=== PATIENT | female | born 1945 | race Hispanic/Latino ===

== ENCOUNTER 2017-07-21 18:42 | Inpatient (IN) | payer MEDICARE ==
[~2017-07-21] VITALS: Ht 149.9 cm; Wt 103.7 kg
[~2017-07-21 18:42] MED LIST: AMYL1CAP63 PO; ASPI-1181 PO; ATEN50TA PO; ATOR20TA65 PO; CLON0.2T PO; CLOP75TA14 PO; FERR325T22 PO; FURO20TA4 PO; INSU100I3 SQ; INSU3INS3 SQ; LEVO150T11 PO; LOSA1TAB42 PO; METF500T6 PO; NIFE60TA21 PO; PANT40TA25 PO; SUCR1TAB2 PO
[2017-07-21 19:27] LABS: BASOPHILS % (AUTO) 0.6 % (0.0-5.0); EOSINOPHILS % (AUTO) 3.6 % (0.0-8.0); HEMATOCRIT 31.4 % (36-48); LYMPHOCYTES % (AUTO) 27.2 % (21.0-51.0); MEAN CORPUSCULAR HEMOGLOBIN 24.1 pg (27.0-33.0); MEAN CORPUSCULAR HGB CONC 33.3 g/dL (32.0-36.0); MEAN CORPUSCULAR VOLUME 72.3 fL (79-99); MONOCYTES % (AUTO) 6.6 % (3.0-13.0); PLATELET COUNT (AUTO) 156 K/uL (130-400); RED BLOOD CELL COUNT(AUTO) 4.35 MIL/uL (4.00-5.50); RED CELL DISTRIBUTION WIDTH 16.9 % (11.0-15.5); WHITE BLOOD COUNT (AUTO) 7.8 K/uL (4.8-10.8)
[2017-07-21 19:43] LABS: CARBON DIOXIDE 25 mmol/L (21-32); CHLORIDE 101 mmol/L (101-111); CREATININE 1.4 mg/dL (0.5-1.5); GLOMERULAR FILTR. RATE CALC 39 mL/min (>60); GLUCOSE,RANDOM 319 mg/dL (70-105); POTASSIUM 3.7 mmol/L (3.5-5.1); SODIUM SERUM 138 mmol/L (136-145); UREA NITROGEN, BLOOD 31 mg/dL (7-18)
[2017-07-21 19:44] LABS: INR 0.95 (0.85-1.15); PARTIAL THROMBOPLASTIN TIME 25.4 SEC (26.3-35.5)
[2017-07-21 19:52] LABS: B-TYPE NATRIURETIC PEPTIDE 134 pg/mL (0-100)
[2017-07-21 19:58] LABS: ALANINE AMINOTRANSFERASE 50 U/L (12-78); ALBUMIN 3.1 g/dL (3.5-5.0); ASPARTATE AMINOTRANSFERASE 53 U/L (10-37); BILIRUBIN,TOTAL 0.3 mg/dL (0.2-1.0); CREATINE KINASE MB < 0.5 ng/mL (0.5-3.6); CREATINE KINASE, TOTAL 38 U/L (21-232); MYOGLOBIN 39 ng/mL (10-92); TOTAL PROTEIN, SERUM 7.9 g/dL (6.0-8.3)
[2017-07-21] MEDS ORDERED: ASPIRIN 325 MG TABLET ONE (22:09)
[2017-07-21] MEDS ORDERED: INSULIN HUMULIN R 100 UNIT/ML 3ML ONE (22:57)
[2017-07-21 23:05] VITALS: BP 151/59
[2017-07-22] MEDS ORDERED: AMYL1CAP63 PO (02:01)
[2017-07-22] MEDS ORDERED: FURO40TA5 PO (02:01)
[2017-07-22] MEDS ORDERED: METO50TA18 PO (02:01)
[2017-07-22 03:06] LABS: CREATINE KINASE MB < 0.5 ng/mL (0.5-3.6); CREATINE KINASE, TOTAL 31 U/L (21-232); MYOGLOBIN 32 ng/mL (10-92); TROPONIN I < 0.04 ng/mL (0.00-0.06)
[2017-07-22 04:07] VITALS: BP 158/61
[2017-07-22 07:00] VITALS: BP 163/65
[2017-07-22 08:31] LABS: CREATINE KINASE MB < 0.5 ng/mL (0.5-3.6); CREATINE KINASE, TOTAL 24 U/L (21-232); MYOGLOBIN 37 ng/mL (10-92); TROPONIN I < 0.04 ng/mL (0.00-0.06)
[2017-07-22 11:00] VITALS: BP 174/67
[2017-07-22] MEDS: MORPHINE SULFATE 2 MG/ML 1ML SYG IVP PRN (11:28)
[2017-07-22] MEDS ORDERED: INSULIN HUMULIN R 100 UNIT/ML 3ML ONE (11:55)
[2017-07-22] MEDS ORDERED: DEXTROSE 50%-WATER 50 ML DISP.SYRIN IV PRN (12:00)
[2017-07-22] MEDS ORDERED: GLUCAGON 1MG KIT 1 MG ML IM PRN (12:00)
[2017-07-22] MEDS: NIFEDIPINE ER 30 MG TAB PO SCH (15:17)
[2017-07-22] MEDS: CLONIDINE HCL 0.2 MG TABLET PO SCH ×2 (15:18→22:03)
[2017-07-22 16:00] VITALS: BP 169/65
[2017-07-22] MEDS: INSULIN HUMULIN R 100 UNIT/ML 3ML SQ SCH ×2 (16:30→21:00)
[2017-07-22] MEDS: SUCRALFATE 1 GM TABLET PO SCH (17:06)
[2017-07-22] MEDS: FERROUS SULFATE 325 MG TABLET.DR PO SCH (17:06)
[2017-07-22] MEDS: INSULIN LISPRO 100 UNIT/ML 3ML SQ SCH (17:14)
[2017-07-22 20:00] VITALS: BP 154/56
[2017-07-22] MEDS ORDERED: INSULIN GLARGINE 100 UNITS/ML 10 ML VIAL SQ ONE (20:26)
[2017-07-22] MEDS: INSULIN GLARGINE 100 UNITS/ML 10 ML VIAL SQ SCH (21:52)
[2017-07-22] MEDS: ASPIRIN 81 MG EC TAB PO SCH (22:02)
[2017-07-22] MEDS: ATORVASTATIN CALCIUM 20 MG TABLET PO SCH (22:03)
[2017-07-22] MEDS: ACETAMINOPHEN-CODEINE 300/30MG TAB PO PRN (23:27)
[2017-07-23] VITALS (7 sets, daily range): BP systolic 102–150; BP diastolic 51–72
[2017-07-23] MEDS: CLONIDINE HCL 0.2 MG TABLET PO SCH ×3 (05:57→21:21)
[2017-07-23] MEDS: LEVOTHYROXINE 150 MCG TABLET PO SCH (06:17)
[2017-07-23] MEDS: INSULIN HUMULIN R 100 UNIT/ML 3ML SQ SCH ×4 (06:18→21:00)
[2017-07-23] MEDS: INSULIN LISPRO 100 UNIT/ML 3ML SQ SCH ×2 (07:30→17:26)
[2017-07-23] MEDS: SUCRALFATE 1 GM TABLET PO SCH ×3 (07:30→17:28)
[2017-07-23] MEDS: [UNRECOGNIZED DRUG - OTHER] PO SCH ×5 (08:00→17:28)
[2017-07-23] MEDS: LOSARTAN 100 MG TABLET PO SCH (08:19)
[2017-07-23] MEDS ORDERED: REGADENOSON 0.4 MG/5 ML PF SYG IVP SCH (08:30)
[2017-07-23] MEDS ORDERED: HYDROCHLOROTHIAZIDE 25 MG TABLET PO SCH (09:00)
[2017-07-23] MEDS: NIFEDIPINE ER 30 MG TAB PO SCH (09:00)
[2017-07-23] MEDS: CLOPIDOGREL BISULFATE 75 MG TAB PO SCH (13:28)
[2017-07-23] MEDS: FUROSEMIDE 40 MG TABLET PO SCH (13:28)
[2017-07-23] MEDS: FERROUS SULFATE 325 MG TABLET.DR PO SCH ×2 (13:28→17:28)
[2017-07-23] MEDS ORDERED: INSULIN GLARGINE 100 UNITS/ML 10 ML VIAL SQ ONE (21:13)
[2017-07-23] MEDS: ATORVASTATIN CALCIUM 20 MG TABLET PO SCH (21:20)
[2017-07-23] MEDS: ASPIRIN 81 MG EC TAB PO SCH (21:21)
[2017-07-23] MEDS: INSULIN GLARGINE 100 UNITS/ML 10 ML VIAL SQ SCH (21:25)
[2017-07-24] VITALS (12 sets, daily range): BP systolic 125–165; BP diastolic 45–70
[2017-07-24] MEDS: MORPHINE SULFATE 2 MG/ML 1ML SYG IVP PRN (03:38)
[2017-07-24 03:44] LABS: BILIRUBIN,URINE Negative (NEGATIVE); COLOR,URINE Yellow (YELLOW); GLUCOSE, URINE (UA) Negative (NEGATIVE); KETONES,URINE Negative (NEGATIVE); LEUKOCYTE ESTERASE ,URINE Trace (NEGATIVE); NITRATE,URINE Negative (NEGATIVE); OCCULT BLOOD,URINE Negative (NEGATIVE); PH,URINE 5.5 (5.0-8.0); PROTEIN,URINE POS 2+ (NEGATIVE)
[2017-07-24 03:49] LABS: APPEARANCE,URINE SLIGHTLY CLOUDY (CLEAR)
[2017-07-24 04:01] LABS: BACTERIA,URINE Many /HPF (None Seen); RBC,URINE 0-1 /HPF (0-1)
[2017-07-24] MEDS: CLONIDINE HCL 0.2 MG TABLET PO SCH ×3 (05:43→21:35)
[2017-07-24] MEDS: LEVOTHYROXINE 150 MCG TABLET PO SCH (05:44)
[2017-07-24] MEDS: SUCRALFATE 1 GM TABLET PO SCH ×3 (05:45→17:25)
[2017-07-24] MEDS: INSULIN LISPRO 100 UNIT/ML 3ML SQ SCH ×2 (06:11→17:27)
[2017-07-24] MEDS: INSULIN HUMULIN R 100 UNIT/ML 3ML SQ SCH ×4 (06:12→21:00)
[2017-07-24 06:26] LABS: HEMATOCRIT 28.4 % (36-48); MEAN CORPUSCULAR HEMOGLOBIN 23.7 pg (27.0-33.0); MEAN CORPUSCULAR HGB CONC 33.3 g/dL (32.0-36.0); PLATELET COUNT (AUTO) 130 K/uL (130-400); RED BLOOD CELL COUNT(AUTO) 3.99 MIL/uL (4.00-5.50); RED CELL DISTRIBUTION WIDTH 16.5 % (11.0-15.5); WHITE BLOOD COUNT (AUTO) 7.2 K/uL (4.8-10.8)
[2017-07-24 06:40] LABS: CREATININE 0.9 mg/dL (0.5-1.5); POTASSIUM 3.3 mmol/L (3.5-5.1)
[2017-07-24 06:42] LABS: PARTIAL THROMBOPLASTIN TIME 24.7 SEC (26.3-35.5); PROTHROMBIN TIME 10.5 SEC (9.6-11.6)
[2017-07-24] MEDS: FERROUS SULFATE 325 MG TABLET.DR PO SCH ×2 (08:00→17:25)
[2017-07-24] MEDS: [UNRECOGNIZED DRUG - OTHER] PO SCH ×3 (08:00→17:25)
[2017-07-24] MEDS ORDERED: CLOPIDOGREL BISULFATE 75 MG TAB PO SCH (09:00)
[2017-07-24] MEDS: CLOPIDOGREL BISULFATE 75 MG TAB PO SCH (09:00)
[2017-07-24] MEDS: LOSARTAN 100 MG TABLET PO SCH (09:00)
[2017-07-24] MEDS: NIFEDIPINE ER 30 MG TAB PO SCH (09:00)
[2017-07-24] MEDS: FUROSEMIDE 40 MG TABLET PO SCH (09:00)
[2017-07-24] MEDS: ENOXAPARIN SODIUM 30 MG/0.3 ML SQ SCH (09:00)
[2017-07-24 09:35] LABS: EOSINOPHILS % (MANUAL) 2 % (1-6); LYMPHOCYTES % (MANUAL) 18 % (22-44); MAN.DIFF COMMENT-IMPRESSION MANUAL DIFFERENTIAL; MONOCYTES % (MANUAL) 10 % (2-9); SEGMENTED NEUTROPHILS % 70 % (40-70)
[2017-07-24 09:38] LABS: PLATELET MORPHOLOGY COMMENT GIANT PLTS PRESENT
[2017-07-24] MEDS ORDERED: NITROGLYCERIN 5 MG/ML 10 ML VIAL IV ONE (10:56)
[2017-07-24] MEDS ORDERED: LIDOCAINE HCL 2% 20ML ONE (10:56)
[2017-07-24] MEDS ORDERED: IOPAMIDOL-370 100 ML VIAL IV ONE (10:56)
[2017-07-24] MEDS ORDERED: HEPARIN SODIUM 1000UNIT/ML 10ML VIAL ONE (10:56)
[2017-07-24] MEDS ORDERED: ISOVUE-370 50ML VIAL IV ONE ×2 (10:56→11:51)
[2017-07-24] MEDS ORDERED: MIDAZOLAM HCL 1 MG/ML 2ML VIAL ONE (11:32)
[2017-07-24] MEDS ORDERED: LABETALOL 20 MG/4 ML DISP.SYRIN IV ONE (11:40)
[2017-07-24] MEDS ORDERED: ADENOSINE 90MG/30ML VIAL IV ONE (12:27)
[2017-07-24] MEDS ORDERED: SODIUM CHLORIDE 0.9% 1000ML 1,000 ML IV SCH (12:54)
[2017-07-24] MEDS: ACETAMINOPHEN-CODEINE 300/30MG TAB PO PRN (17:39)
[2017-07-24] MEDS: ASPIRIN 81 MG EC TAB PO SCH (21:35)
[2017-07-24] MEDS: ATORVASTATIN CALCIUM 20 MG TABLET PO SCH (21:35)
[2017-07-24] MEDS: INSULIN GLARGINE 100 UNITS/ML 10 ML VIAL SQ SCH (21:38)
[2017-07-25 04:17] VITALS: BP 138/59
[2017-07-25] MEDS: CLONIDINE HCL 0.2 MG TABLET PO SCH ×3 (04:43→21:56)
[2017-07-25] MEDS: ACETAMINOPHEN-CODEINE 300/30MG TAB PO PRN ×3 (04:46→23:30)
[2017-07-25 04:51] LABS: POTASSIUM 3.3 mmol/L (3.5-5.1)
[2017-07-25] MEDS: INSULIN HUMULIN R 100 UNIT/ML 3ML SQ SCH ×4 (05:39→22:00)
[2017-07-25] MEDS: INSULIN LISPRO 100 UNIT/ML 3ML SQ SCH ×2 (05:39→16:52)
[2017-07-25] MEDS: LEVOTHYROXINE 150 MCG TABLET PO SCH (06:22)
[2017-07-25] MEDS: SUCRALFATE 1 GM TABLET PO SCH ×3 (06:22→16:57)
[2017-07-25] MEDS ORDERED: POTASSIUM CHLORIDE 20 MEQ ERTAB PO PRN (07:45)
[2017-07-25] MEDS ORDERED: POTASSIUM CHLORIDE 10% ELIXIR 20 MEQ/15 ML UDCUP PO PRN (07:45)
[2017-07-25] MEDS ORDERED: POTASSIUM CHLORIDE 20MEQ/100ML 100 ML IV PRN (07:45)
[2017-07-25] MEDS ORDERED: LIDOCAINE HCL-MPF 1% 2ML VIAL IVP PRN (07:45)
[2017-07-25 08:18] VITALS: BP 159/64
[2017-07-25] MEDS: FERROUS SULFATE 325 MG TABLET.DR PO SCH ×2 (09:20→16:51)
[2017-07-25] MEDS: FUROSEMIDE 40 MG TABLET PO SCH (09:20)
[2017-07-25] MEDS: ENOXAPARIN SODIUM 30 MG/0.3 ML SQ SCH (09:21)
[2017-07-25] MEDS: LOSARTAN 100 MG TABLET PO SCH (09:21)
[2017-07-25] MEDS: CLOPIDOGREL BISULFATE 75 MG TAB PO SCH (09:21)
[2017-07-25] MEDS: [UNRECOGNIZED DRUG - OTHER] PO SCH ×3 (09:21→16:57)
[2017-07-25] MEDS: NIFEDIPINE ER 30 MG TAB PO SCH (09:21)
[2017-07-25 12:00] VITALS: BP 161/67
[2017-07-25 16:41] VITALS: BP 149/59
[2017-07-25 19:55] VITALS: BP 124/50
[2017-07-25] MEDS: ASPIRIN 81 MG EC TAB PO SCH (21:56)
[2017-07-25] MEDS: ATORVASTATIN CALCIUM 20 MG TABLET PO SCH (21:56)
[2017-07-25] MEDS: INSULIN GLARGINE 100 UNITS/ML 10 ML VIAL SQ SCH (21:58)
[2017-07-26 00:14] VITALS: BP 119/50
[2017-07-26 03:52] LABS: BASOPHILS % (AUTO) 0.7 % (0.0-5.0); EOSINOPHILS % (AUTO) 3.7 % (0.0-8.0); HEMATOCRIT 27.2 % (36-48); LYMPHOCYTES % (AUTO) 23.7 % (21.0-51.0); MEAN CORPUSCULAR HGB CONC 33.5 g/dL (32.0-36.0); MEAN CORPUSCULAR VOLUME 71.6 fL (79-99); MONOCYTES % (AUTO) 8.8 % (3.0-13.0); NEUTROPHILS % (AUTO) 63.1 % (40.0-77.0); PLATELET COUNT (AUTO) 126 K/uL (130-400); RED CELL DISTRIBUTION WIDTH 16.7 % (11.0-15.5); WHITE BLOOD COUNT (AUTO) 6.1 K/uL (4.8-10.8)
[2017-07-26 03:59] VITALS: BP 109/44
[2017-07-26 04:09] LABS: CREATININE 1.3 mg/dL (0.5-1.5); POTASSIUM 3.9 mmol/L (3.5-5.1)
[2017-07-26] MEDS: SUCRALFATE 1 GM TABLET PO SCH ×2 (06:31→10:56)
[2017-07-26] MEDS: INSULIN HUMULIN R 100 UNIT/ML 3ML SQ SCH ×3 (06:31→20:54)
[2017-07-26] MEDS: LEVOTHYROXINE 150 MCG TABLET PO SCH (06:31)
[2017-07-26] MEDS: CLONIDINE HCL 0.2 MG TABLET PO SCH ×3 (06:31→20:47)
[2017-07-26] MEDS: INSULIN LISPRO 100 UNIT/ML 3ML SQ SCH (06:34)
[2017-07-26 08:00] VITALS: BP 123/50
[2017-07-26] MEDS: FERROUS SULFATE 325 MG TABLET.DR PO SCH (09:02)
[2017-07-26] MEDS: LOSARTAN 100 MG TABLET PO SCH (09:02)
[2017-07-26] MEDS: FUROSEMIDE 40 MG TABLET PO SCH (09:02)
[2017-07-26] MEDS: [UNRECOGNIZED DRUG - OTHER] PO SCH ×2 (09:02→12:27)
[2017-07-26] MEDS: CLOPIDOGREL BISULFATE 75 MG TAB PO SCH (09:02)
[2017-07-26] MEDS: NIFEDIPINE ER 30 MG TAB PO SCH (09:02)
[2017-07-26] MEDS: ENOXAPARIN SODIUM 30 MG/0.3 ML SQ SCH (09:03)
[2017-07-26] MEDS: ACETAMINOPHEN-CODEINE 300/30MG TAB PO PRN (10:56)
[2017-07-26] MEDS ORDERED: METHYLPREDNISOLONE SOD SUCC 125MG/2ML VIAL ONE (11:33)
[2017-07-26 11:54] VITALS: BP 144/53
[2017-07-26 19:00] VITALS: BP 135/59
[2017-07-26 20:47] VITALS: BP 135/59
[2017-07-26] MEDS: ASPIRIN 81 MG EC TAB PO SCH (20:47)
[2017-07-26] MEDS: ATORVASTATIN CALCIUM 20 MG TABLET PO SCH (20:48)
[2017-07-26] MEDS: INSULIN GLARGINE 100 UNITS/ML 10 ML VIAL SQ SCH (20:53)
== END 2017-07-26 21:00 | DRG 287 ==
LOC: EDH 18:42 → EDHIP 21:37 → 3DH 22:13 → 3AH 07-22 17:00
PROVIDERS: ADMIT Family Medicine; ATTEND Family Medicine
PROC: 4A023N7 Measurement of Cardiac Sampling and Pressure, Left Heart, Percutaneous Approach (ICD-10-PCS; principal; 2017-07-24)
PROC: B2151ZZ Fluoroscopy of Left Heart using Low Osmolar Contrast (ICD-10-PCS; 2017-07-24)
PROC: B2111ZZ Fluoroscopy of Multiple Coronary Arteries using Low Osmolar Contrast (ICD-10-PCS; 2017-07-24)
DX: R07.9 Chest pain, unspecified (principal); E11.22 Type 2 diabetes mellitus with diabetic chronic kidney disease; K86.89 Other specified diseases of pancreas; Z68.42 Body mass index [BMI] 45.0-49.9, adult; I25.10 Atherosclerotic heart disease of native coronary artery without angina pectoris; I49.3 Ventricular premature depolarization; N18.3 Chronic kidney disease, stage 3 (moderate); I12.9 Hypertensive chronic kidney disease with stage 1 through stage 4 chronic kidney disease, or unspecified chronic kidney disease; G47.33 Obstructive sleep apnea (adult) (pediatric); E78.5 Hyperlipidemia, unspecified; E03.9 Hypothyroidism, unspecified; E66.9 Obesity, unspecified; Z95.5 Presence of coronary angioplasty implant and graft; Z91.81 History of falling; Z90.710 Acquired absence of both cervix and uterus; Z90.5 Acquired absence of kidney
CPT/HCPCS: 36415; 70450; 71045; 73110; 73560; 73600; 78452; 80048; 80053; 81001; 82550; 82553; 82948; 83874; 83880; 84484; 84550; 85025; 85610; 85730; 93005; 93017; 93306; 93458; 93571; 93971; 96374; 99152; 99153; 99291; A9500; C1760; C1894; J0153; J1644; J1650; J1815; J2250; J2785; J2930; J3490; Q9967

== ENCOUNTER 2020-02-25 06:31 | Day surgery (SDC) | payer OTHER, MEDICARE ==
[~2020-02-25 06:31] MED LIST changes: -ASPI-1181 PO; +ASPI-1443 PO; -ATEN50TA PO; +ATOR10 PO; +BISA5TAB12 PO; +CHOL500050 PO; -CLON0.2T PO; -CLOP75TA14 PO; -FURO20TA4 PO; -INSU100I3 SQ; -INSU3INS3 SQ; +LEVO100T12 PO; -LEVO150T11 PO; -METF500T6 PO; -NIFE60TA21 PO; -PANT40TA25 PO; +PANT40TA54 PO; +PANT40TA55 PO; +SODIUM CHLORIDE 0.9% 1000ML 1,000 ML IV ONE; -SUCR1TAB2 PO
[2020-02-25] MEDS ORDERED: PROPOFOL 10 MG/ML 20ML VIAL IV ONE (07:30)
[2020-02-25] MEDS ORDERED: LIDOCAINE HCL 1% 20 ML VIAL ONE (07:31)
[2020-02-25] MEDS ORDERED: EPHEDRINE SULFATE 50 MG/ML AMPULE ONE (07:48)
[2020-02-25 08:00] VITALS: BP 91/49
[2020-02-25 08:05] VITALS: BP 95/38
[2020-02-25 08:10] VITALS: BP 103/36
[2020-02-25 08:20] VITALS: BP 121/48
== END 2020-02-25 08:42 | disposition home or self-care (01) ==
LOC: ENDO 06:31 → DAH 06:31 → ENDO 08:42
PROVIDERS: ATTEND Internal Medicine
DX: D50.9 Iron deficiency anemia, unspecified (principal); K57.30 Diverticulosis of large intestine without perforation or abscess without bleeding; K29.50 Unspecified chronic gastritis without bleeding; I10 Essential (primary) hypertension; E03.9 Hypothyroidism, unspecified; E11.9 Type 2 diabetes mellitus without complications; F32.9 Major depressive disorder, single episode, unspecified; E78.5 Hyperlipidemia, unspecified; I25.10 Atherosclerotic heart disease of native coronary artery without angina pectoris; K59.01 Slow transit constipation; K76.0 Fatty (change of) liver, not elsewhere classified; R14.0 Abdominal distension (gaseous); Z86.010 Personal history of colon polyps; Z20.828 Contact with and (suspected) exposure to other viral communicable diseases; Z79.4 Long term (current) use of insulin; Z79.899 Other long term (current) drug therapy; Z90.49 Acquired absence of other specified parts of digestive tract; Z98.890 Other specified postprocedural states
CPT/HCPCS: 43239; 45378; 82948 ×2; 88305; 88342; 93005; A4215; A4221; A4222; A4223; A4606; A4620; A4663; C9803; J2704; J3490; J7030; U0003

== ENCOUNTER → 2020-03-04 | Outpatient (CLI) | payer OTHER, MEDICARE ==
[~2020-03-04] MED LIST changes: -SODIUM CHLORIDE 0.9% 1000ML 1,000 ML IV ONE
== END | disposition home or self-care (01) ==
LOC: RAH 10:43
PROVIDERS: ATTEND Internal Medicine Gastroenterology
DX: K29.70 Gastritis, unspecified, without bleeding (principal); R14.0 Abdominal distension (gaseous); R11.2 Nausea with vomiting, unspecified; R10.9 Unspecified abdominal pain
CPT/HCPCS: 78264; A9541

== ENCOUNTER → 2022-07-12 | Outpatient (CLI) | payer OTHER, MEDICARE ==
[~2022-07-12] MED LIST changes: +BISA-151 PO; -BISA5TAB12 PO
== END | disposition home or self-care (01) ==
LOC: RAH 10:26
PROVIDERS: ATTEND Internal Medicine
DX: K74.60 Unspecified cirrhosis of liver (principal); D73.4 Cyst of spleen; Z90.49 Acquired absence of other specified parts of digestive tract
CPT/HCPCS: 76700

== ENCOUNTER → 2022-07-22 | Outpatient (CLI) | payer OTHER, MEDICARE | END | disposition home or self-care (01) | LOC: RAH 11:27 | PROVIDERS: ATTEND Internal Medicine Gastroenterology | DX: K74.60 Unspecified cirrhosis of liver (principal); Z90.49 Acquired absence of other specified parts of digestive tract | CPT/HCPCS: 74176 ==